=== PATIENT | female | born 1995 | race Hispanic/Latino ===

== ENCOUNTER 2023-07-27 07:51 | Inpatient (IN) | payer SELFPAY ==
[2023-07-27] MEDS ORDERED: TYLENOL EXTRA STRENGTH 500 MG PO PRN (08:24)
[2023-07-27] MEDS ORDERED: STADOL 2 MG IV PRN (08:24)
[2023-07-27] MEDS ORDERED: Zofran 4 MG/2 ML VIAL IV PRN (08:24)
[2023-07-27] MEDS ORDERED: XYLOCAINE 1% HCL 20 ML MDV IJ PRN (08:24)
[2023-07-27 08:52] LABS: AMNISURE TEST RESULTS NEGATIVE (NEGATIVE)
[2023-07-27 09:09] LABS: Absolute Neutrophil Ct (ANC) 5.89 x10^3/uL (1.4-6.9); BASOPHIL % 0.2 % (0.0-0.4); Basophil (Absolute #) 0.02 x10^3/uL (0-0.4); Eosinophil % 0.4 % (0.00-5.0); Eosinophil (Absolute #) 0.03 x10^3/uL (0-0.5); Hematocrit 35.4 % (35-47); Hemoglobin 11.6 g/dL (12.0-16.0); IMMATURE GRAN # 0.04 x10^3u/L (0.00-0.03); IMMATURE GRAN % 0.5 % (0.00-0.4); Lymphocyte (Absolute #) 1.73 x10^3/uL (1.0-4.6); Lymphocytes % 21.1 % (24.0-44.0); Mean Cell Volume 89.6 fL (78-100); Mean Corpuscular Hemoglobin 29.4 pg (26-32); Mean Corpuscular Hgb Concent. 32.8 g/dL (32-36); Mean Platelet Volume 11.9 fL (7.5-11.0); Monocytes % 6.1 % (0.0-12.0); Neutrophil % 71.7 % (36.0-66.0); Platelet Count 206 x10^3/uL (150-450); Red Blood Count 3.95 x10^6/uL (4.1-5.4); Red Cell Distribution Width 14.7 % (11.5-14.0); White Blood Count 8.2 x10^3/uL (4.0-10.5)
[2023-07-27] MEDS: OMNIPEN 2 GM*** 2 G in Sodium Chloride 100ML MINI-BAG PLUS 100 ML IV ONE (09:13)
[2023-07-27] MEDS: Lactated Ringers 1,000 ML IV SCH (09:14)
[2023-07-27] MEDS: PITOCIN 30 UNITS/ LR 500 ML 30 UNITS/500 ML PLAST..BAG IV SCH (09:14)
[2023-07-27 09:47] LABS: ABO TYPING O; Antibody Screen NEGATIVE (NEGATIVE); RH TYPING POSITIVE
[2023-07-27] MEDS ORDERED: PITOCIN 30 UNITS/ LR 500 ML 30 UNITS/500 ML PLAST..BAG IV SCH (12:05)
[2023-07-27 12:30] LABS: Amphetamine,Urine NEGATIVE (NEGATIVE); Barbiturate,Urine NEGATIVE (NEGATIVE); Benzodiazepine,Urine NEGATIVE (NEGATIVE); Cocaine,Urine NEGATIVE (NEGATIVE); Methadone,Urine NEGATIVE (NEGATIVE); Opiate,Urine NEGATIVE (NEGATIVE); PCP,Urine NEGATIVE (NEGATIVE); THC,Urine NEGATIVE (NEGATIVE)
[2023-07-27] MEDS: OMNIPEN 1 GM*** 1 GM in Sodium Chloride 100ML MINI-BAG PLUS 100 ML IV SCH (12:55)
[2023-07-27] MEDS ORDERED: LANSINOH 40 GM TOP PRN (14:53)
[2023-07-27] MEDS ORDERED: MOTRIN 400 MG PO PRN (14:53)
--- NOTE | 2023-07-27 20:56 | PCM.HP ---
History of Present Illness - Chief Complaint Chief Complaint: at 38 weeks Date: 07/27/23 History of Present Illness: is a 28 year old female. who presented this morning around 8 am with complaints of Contractions and possible ROM around 420 am. She is here with her sister who helps her interpret as she is czech speaking. Her contractions are not bad at this time and they are about 6-7 min apart. SHe is tolerating them well. She is having good movement. She was seen yesterday by me and ws examined and was 3-4/80/-2. On initial exam here with the nurse she is 5-6/80/-2. - Review of Systems Constitutional: No Fever, No Chills Eyes: No Symptoms Ears, Nose, & Throat: No Symptoms Respiratory: No Cough, No Short Of Breath Cardiac: No Chest Pain, No Edema, No Syncope Abdominal/Gastrointestinal: Other (contractions ), No Abdominal Pain, No Nausea, No Vomiting, No Diarrhea Genitourinary Symptoms: No Dysuria Musculoskeletal: No Back Pain, No Neck Pain Skin: No Rash Neurological: No Dizziness, No Focal Weakness, No Sensory Changes Psychological: No Symptoms Endocrine: No Symptoms Hematologic/Lymphatic: No Symptoms Immunological/Allergic: No Symptoms Medications & Allergies Home Medications: Home Medication List No Reportable Medications [No Reported Medications] 07/27/23 [History Confirmed 07/27/23] Allergies/Adverse Reactions: Allergies Allergy/AdvReac Type Severity Reaction Status Date / Time No Known Drug Allergies Allergy Unverified 07/27/23 20:20 - Past Medical History Past Medical History: No Neurological History: No Pertinent History ENT History: No Pertinent History Cardiac History: No Pertinent History Respiratory History: No Pertinent History Endocrine Medical History: No Pertinent History Musculoskelatal History: No Pertinent History GI Medical History: No Pertinent History History: No Pertinent History Pyscho-Social History: No Pertinent History Reproductive Disorders: No Pertinent History - Female History Are you now?: Yes Expected Date of Delivery: 08/07/23 - Past Surgical History Past Surgical History: No Neuro Surgical History: No Pertinent History Cardiac History: No Pertinent History Respiratory Surgery: No Pertinent History GI Surgical History: No Pertinent History Genitourinary Surgical Hx: No Pertinent History Musculskeletal Surgical Hx: No Pertinent History Female Surgical History: No Pertinent History - Social History Smoking Status: Never smoker Alcohol: Occasionally Drug Use: none - Social Determinants of Health Will the patient participate in the screening: Yes Do you worry about a steady place to live?: No Do you have any problems with any of the following?: No known problems In the past 12 months,have you had to go without utilities?: No Have you or anyone in your house had to go without enough: No Transportation Issues: No Has anyone in your support network made you feel unsafe?: No Does the patient want assistance with any of the above?: No - Physical Exam Vital Signs: Vital Signs - 24 hr Temp Pulse Resp BP BP Pulse Ox 07/27/23 20:00 98.4 F 88 16 102/55 96 07/27/23 17:30 98.7 F 95 H 16 107/56 97 07/27/23 16:30 98.7 F 95 H 16 117/65 100 07/27/23 16:00 98.7 F 78 16 111/57 99 07/27/23 15:30 98.7 F 86 16 119/62 99 07/27/23 15:15 98.7 F 78 16 121/63 98 07/27/23 15:00 98.7 F 83 16 121/66 99 07/27/23 14:45 98.7 F 93 H 16 112/55 99 07/27/23 14:30 98.7 F 90 16 115/57 98 07/27/23 14:15 98.7 F 90 16 115/57 99 07/27/23 14:00 98.1 F 108 H 16 134/89 99 07/27/23 13:45 98.1 F 94 H 16 134/62 99 07/27/23 13:30 98.1 F 90 16 104/60 99 07/27/23 13:15 98.1 F 83 16 104/60 99 07/27/23 13:00 98.1 F 83 16 112/61 99 07/27/23 12:45 98.1 F 85 16 104/58 99 07/27/23 12:30 98.1 F 90 16 97/54 99 07/27/23 12:15 98.1 F 80 16 100/55 99 07/27/23 12:00 98.1 F 82 16 105/68 105/68 99 07/27/23 11:30 98.1 F 93 H 16 107/62 99 07/27/23 11:00 98.1 F 84 16 106/55 99 07/27/23 10:30 98.3 F 90 16 97/55 98 07/27/23 10:00 98.3 F 16 166/67 98 07/27/23 09:30 98.3 F 86 16 107/64 98 07/27/23 09:12 98.3 F 07/27/23 09:00 98.3 F 83 16 117/69 97 07/27/23 08:30 98.3 F 83 16 117/87 117/69 97 07/27/23 08:27 98.3 F General Appearance: no apparent distress, alert Neurologic Exam: alert, oriented x 3, cooperative, normal mood/affect, nml cerebellar function, nml station & gait, sensation nml, No motor deficits Eye Exam: PERRL/EOMI, eyes nml inspection Ears, Nose, Throat Exam: normal ENT inspection, TMs normal, pharynx normal, moist mucous membranes Neck Exam: normal inspection, non-tender, supple, full range of motion Respiratory Exam: normal breath sounds, lungs clear, No respiratory distress Gastrointestinal/Abdomen Exam: soft, normal bowel sounds, other (gravid), No tenderness, No mass Pelvic Exam: other (SVE 5-6/80/-2 FHt: CAT 1 toco: Q4-7 min) Back Exam: normal inspection, normal range of motion, No CVA tenderness, No ve rtebral tenderness Extremity Exam: normal inspection, normal range of motion, pelvis stable Skin Exam: normal color, warm, dry, No rash Lymphatic Exam: No adenopathy Results - Labs Lab/Micro Results: Lab Results-Last 24 Hours 07/27/23 07/27/23 07/27/23 Range/Units 08:45 09:00 09:00 WBC 8.2 (4.0-10.5) x10^3/uL RBC 3.95 L (4.1-5.4) x10^6/uL Hgb 11.6 L (12.0-16.0) g/dL Hct 35.4 (35-47) % MCV 89.6 (78-100) fL MCH 29.4 (26-32) pg MCHC 32.8 (32-36) g/dL RDW 14.7 H (11.5-14.0) % Plt Count 206 (150-450) x10^3/uL MPV 11.9 H (7.5-11.0) fL Gran % 71.7 H (36.0-66.0) % Immature Gran % (Auto) 0.5 H (0.00-0.4) % Nucleat RBC Rel Count 0.0 (0.00-0.1) % Eos # (Auto) 0.03 (0-0.5) x10^3/uL Immature Gran # (Auto) 0.04 H (0.00-0.03) x10^3u/L Absolute Lymphs (auto) 1.73 (1.0-4.6) x10^3/uL Absolute Monos (auto) 0.50 (0.0-1.3) x10^3/uL Absolute Nucleated RBC 0.00 (0.00-0.01) x10^3u/L Lymphocytes % 21.1 L (24.0-44.0) % Monocytes % 6.1 (0.0-12.0) % Eosinophils % 0.4 (0.00-5.0) % Basophils % 0.2 (0.0-0.4) % Absolute Granulocytes 5.89 (1.4-6.9) x10^3/uL Basophils # 0.02 (0-0.4) x10^3/uL Urine Opiates Level NEGATIVE (NEGATIVE) Ur Methadone NEGATIVE (NEGATIVE) Urine Barbiturates NEGATIVE (NEGATIVE) Ur Phencyclidine (PCP) NEGATIVE (NEGATIVE) Urine Amphetamine NEGATIVE (NEGATIVE) U Benzodiazepine Level NEGATIVE (NEGATIVE) Urine Cocaine NEGATIVE (NEGATIVE) Urine Marijuana (THC) NEGATIVE (NEGATIVE) ABO Group O Rh Factor POSITIVE Antibody Screen NEGATIVE (NEGATIVE) Assessment/Plan (1) with 38 completed weeks gestation Current Visit: Yes Status: Acute Assessment & Plan: Pt admitted routine labs done. GBS just done yesterday and was not back on admission therefore Ampicillin was started, Pt does not desire epidural and desire natural childbirth. Contractions are spaced out will recheck in 3 hours and if no change will start Pitocin for Augmentation. Pt has had normal pregnan cy. Previous x2 boys both >8 pounds EFW by Rajendra 7lb. GBS returned around 1 pm as negative. Pt unchanged cervical exam by myself around 1230 pm and Pitocin had been started around 1200 pm. Code(s): Z3A.38 - 38 WEEKS GESTATION OF
--- NOTE | 2023-07-27 21:09 | OP ---
OB OP NOTE - OPERATIVE NOTE Surgery Date: 07/27/23 Surgery Time: 14:12 PREOPERATIVE DIAGNOSIS: at 38 weeks gestation POST OPERATIVE DIAGNOSIS: same Procedure: Surgeon: SERA BECKETT ANESTHESIA: none ESTIMATED BLOOD LOSS: 200 ml CONDITION: Stable COMPLICATIONS: none SPECIMEN: cord blood HISTORY - HISTORY HISTORY: HISTORY:28 yo with 2 previous both boys and >8 pounds. With Uncom plicated . Presented to L [facility] D with contractions and Possible ROM. She was found to be 5-6/80/-2 on first exam and amnisure was sent and intitially negative. She was admitted for labor. She Then had Gross ROM around 1020 am. She had received 1 dose of AMpicillin for [place] GBS as it was pending from 07/25. She then received her second dose around 1. She was not brett very frequently and then wehn reexamined at 1115 she remained the same but had SROM at 1020. Pitocin was started around 1200. I examined her around 1230 and she was still the same. Over the next hour and a half she progressed to complete and feeling pressure. FINDINGS - FINDINGS FINDINGS: FINDINGS:Female (Ingrid) delivered by OA at 1412, Apgars 9/9, weight 3029 gms 6lb-11 oz. DESCRIPTION OF PROCEDURE - DESCRIPTION OF PROCEDURE DESCRIPTION OF PROCEDURE: DESCRIPTION OF PROCEDURE: The patient was set up for a bed delivery The blue bag was placed and the patient pushed with 3 contractions for successful delivery of female over intact perineum. The shoulders delivered together followed by the body. There was a nuchal cord x 1 that was reduced after the delivered. The was then placed to the mother's abdomen and the was dried and suctioned both mouth and nares. The cord was doubly clamped and then cut by the sister of the patient. Cord blood obtained. The placentat then delivered without complications. The placenta was inspected and was intact. The vaginal vault was intact there were 2 small hemostatic superficial lacerations noted that were not repaired. Both mom and were in stable condition.
[2023-07-27] MEDS: TUCKS TP PRN (21:54)
[2023-07-27] MEDS: Dermoplast Spray TP PRN (21:55)
[2023-07-27] MEDS: Docusate Sodium 100 MG PO SCH (21:55)
[2023-07-28 04:14] LABS: Absolute Neutrophil Ct (ANC) 6.95 x10^3/uL (1.4-6.9); BASOPHIL % 0.3 % (0.0-0.4); Basophil (Absolute #) 0.03 x10^3/uL (0-0.4); Eosinophil % 0.3 % (0.00-5.0); Eosinophil (Absolute #) 0.03 x10^3/uL (0-0.5); Hematocrit 33.6 % (35-47); Hemoglobin 10.5 g/dL (12.0-16.0); IMMATURE GRAN # 0.04 x10^3u/L (0.00-0.03); IMMATURE GRAN % 0.4 % (0.00-0.4); Lymphocyte (Absolute #) 2.05 x10^3/uL (1.0-4.6); Lymphocytes % 21.2 % (24.0-44.0); Mean Cell Volume 90.3 fL (78-100); Mean Corpuscular Hemoglobin 28.2 pg (26-32); Mean Corpuscular Hgb Concent. 31.3 g/dL (32-36); Mean Platelet Volume 11.7 fL (7.5-11.0); Monocyte (Absolute #) 0.56 x10^3/uL (0.0-1.3); Monocytes % 5.8 % (0.0-12.0); Platelet Count 186 x10^3/uL (150-450); Red Blood Count 3.72 x10^6/uL (4.1-5.4); Red Cell Distribution Width 14.8 % (11.5-14.0); White Blood Count 9.7 x10^3/uL (4.0-10.5)
[2023-07-28 08:52] VITALS: RESP 18; O2SAT 95
[2023-07-28] MEDS: Adacel Vial IM ONE (09:46)
[2023-07-28 15:01] VITALS: BP 109/53; PULSE 84; TEMP 97.8
--- NOTE | 2023-07-28 15:28 | PCM.DS ---
Discharge Summary Date of Admission: 07/27/23 07:51 Date of Discharge: 07/28/2023 Admitting Physician: SERA BECKETT DO Consults: Consults on Case 07/27/23 18:10 Navigation ONCE Primary Care Provider: BRUNO ROSS MASSIEL Allergies Allergies No Known Drug Allergies Allergy (Unverified 07/27/23 20:20) OB Hospital Summary - Hospital Course Hospital Course: PT is 28 yo G3 now P3 who presented at 38.3 with complaints of contractions and SROM. The patient was checked day Prior and was 3-4/80/-2 and she had changed to 5-6/80/-2 and brett. she was admitted her GBS was pending initially and antibiotics were started. SHe received 2 doses of Ampicillin and then GBS returned as negative. She then progressed having gross SROM at 1020 am. She was augmented with a small dose of Pitocin as her contractions spaced out and she progressed to delivery. Female without complications and no repairs. She did well tim po, voiding well, passing flatus. breast feeding well. PP hgb 10.5. She is doing well and desires discharge home. Reason for Admission: Onset of Labor Infant Delivery Method: Spontaneous Vaginal Episiotomy Description: None Other Post Procedures: None Complications: None OB Discharge Diagnosis: IUP at Term Delivery Baby: Female - Vitals & Intake/Output Vital Signs: Vital Signs Temperature 97.8 F 07/28/23 14:45 Pulse Rate 84 07/28/23 14:45 Respiratory Rate 18 07/28/23 14:45 Blood Pressure 109/53 07/28/23 14:45 O2 Sat by Pulse Oximetry 95 07/28/23 14:45 Intake & Output: Intake & Output 07/26/23 07/27/23 07/28/23 07/29/23 11:59 11:59 11:59 11:59 Intake Total 550 Output Total 501 Balance 49 Weight 62.596 kg - Lab Result Diagrams: 07/28/23 03:56 Lab Results-Last 24 Hrs: Lab Results-Last 24 Hours 07/28/23 Range/Units 03:56 WBC 9.7 (4.0-10.5) x10^3/uL RBC 3.72 L (4.1-5.4) x10^6/uL Hgb 10.5 L (12.0-16.0) g/dL Hct 33.6 L (35-47) % MCV 90.3 (78-100) fL MCH 28.2 (26-32) pg MCHC 31.3 L (32-36) g/dL RDW 14.8 H (11.5-14.0) % Plt Count 186 (150-450) x10^3/uL MPV 11.7 H (7.5-11.0) fL Gran % 72.0 H (36.0-66.0) % Immature Gran % (Auto) 0.4 (0.00-0.4) % Nucleat RBC Rel Count 0.0 (0.00-0.1) % Eos # (Auto) 0.03 (0-0.5) x10^3/uL Immature Gran # (Auto) 0.04 H (0.00-0.03) x10^3u/L Absolute Lymphs (auto) 2.05 (1.0-4.6) x10^3/uL Absolute Monos (auto) 0.56 (0.0-1.3) x10^3/uL Absolute Nucleated RBC 0.00 (0.00-0.01) x10^3u/L Lymphocytes % 21.2 L (24.0-44.0) % Monocytes % 5.8 (0.0-12.0) % Eosinophils % 0.3 (0.00-5.0) % Basophils % 0.3 (0.0-0.4) % Absolute Granulocytes 6.95 H (1.4-6.9) x10^3/uL Basophils # 0.03 (0-0.4) x10^3/uL OB Discharge Exam General Appearance: no apparent distress, alert Neurologic Exam: alert, oriented x 3, cooperative, normal mood/affect, nml cerebellar function, sensation nml, No motor deficits Skin Exam: normal color, warm, dry Respiratory Exam: normal breath sounds, lungs clear, No respiratory distress Cardiovascular Exam: regular rate/rhythm, normal heart sounds Gastrointestinal/Abdomen Exam: soft, other (FF below U), No tenderness, No mass Pelvic Exam: deferred Uterus: Normal, Firm - Discharge Discharge Date: 07/28/23 Disposition: Home, Self-Care Prescriptions: No Action No Reportable Medications [No Reported Medications] Additional Instructions: follow up in 2 weeks and 6 weeks. Follow up with: BRUNO ROSS MD [Primary Care Provider] - Forms: OB Discharge Instructions
[2023-07-28 16:25] LABS: RPR Non Reactive (Non Reactive)
== END 2023-07-28 16:42 | disposition home or self-care (01) | DRG 807 ==
LOC: OB 07:51 → UNDOADMOB 07:51 → EDSTATUS 10:19 → INTOOBSV 14:12 → OBSVTOIN 14:12
PROVIDERS: ADMIT Family Medicine; ATTEND Family Medicine
PROC: 10E0XZZ Delivery of Products of Conception, External Approach (ICD-10-PCS; principal; 2023-07-27)
DX: O69.81X0 Labor and delivery complicated by cord around neck, without compression, not applicable or unspecified (principal); Z37.0 Single live birth; Z3A.38 38 weeks gestation of pregnancy; Z20.828 Contact with and (suspected) exposure to other viral communicable diseases
CPT/HCPCS: 36415; 80307; 84112; 85025; 86592; 86850; 86900; 86901; 90715; 96372; J0290; J2590; A9270-GY